=== PATIENT | female | born 1970 | race African-American/Black ===

== ENCOUNTER 2018-06-10 12:09 | Emergency (ER) | payer MEDICAID ==
[~2018-06-10] VITALS: Ht 160 cm; Wt 131.1 kg
[2018-06-10 12:14] VITALS: BP_SYST 144
[2018-06-10] MEDS ORDERED: KETOROLAC TROMETHAMINE 60 MG/2 ML VIAL IM ONE (13:00)
[2018-06-10] MEDS ORDERED: PROCHLORPERAZINE EDISYLATE 10 MG/2 ML VIAL IM ONE (13:00)
[2018-06-10 14:00] VITALS: BP_SYST 137
== END 2018-06-10 14:00 | disposition home or self-care (01) ==
LOC: SED 12:09
DX: G43.909 Migraine, unspecified, not intractable, without status migrainosus (principal); R03.0 Elevated blood-pressure reading, without diagnosis of hypertension; Z88.2 Allergy status to sulfonamides; Z88.8 Allergy status to other drugs, medicaments and biological substances
CPT/HCPCS: 96372; 99283; J0780; J1885

== ENCOUNTER 2019-04-06 02:24 | Emergency (ER) | payer MEDICAID ==
[~2019-04-06] VITALS: Ht 162.6 cm; Wt 129.3 kg
[2019-04-06 03:13] VITALS: BP_SYST 147
--- NOTE | 2019-04-06 03:20 | NUR ---
TPatient triaged and placed in waiting room. VSS and patient appears in no acute distress at this time. Accompanied by self, awaiting available bed, and MD notified of need for MSE.
--- NOTE | 2019-04-06 05:02 | NUR ---
Ambulatory to hallway bed 1
--- NOTE | 2019-04-06 05:30 | NUR ---
ER Dr. Alexander at bedside examining patient.
[2019-04-06 06:04] VITALS: BP_SYST 137
--- NOTE | 2019-04-06 06:04 | NUR ---
Patient given written and verbal discharge instructions and verbalizes understanding. ER MD discussed with patient the results and treatment provided. Patient in stable condition. ID arm band removed. Rx of fly gardner given. Patient educated on pain management and to follow up with PMD. Pain Scale 3/10. Opportunity for questions provided and answered. Medication side effect fact sheet provided.
== END 2019-04-06 06:04 | disposition home or self-care (01) ==
LOC: SED 02:24
DX: J06.9 Acute upper respiratory infection, unspecified (principal); Z88.8 Allergy status to other drugs, medicaments and biological substances
CPT/HCPCS: 36415; 86403; 87081; 99283